=== PATIENT | female | born 1950 | race Two or more races ===

== ENCOUNTER 2021-02-07 07:36 | Outpatient (CLI) | payer MEDICARE, MEDICAID ==
[2021-02-07 08:00] LABS: BASOPHILS % (AUTO) 1 % (0-1); EOSINOPHILS % (AUTO) 3 % (1-7); LYMPHOCYTES % (AUTO) 26 % (22-44); MEAN CORPUSCULAR HEMOGLOBIN 29.8 pg (27.0-34.8); MEAN CORPUSCULAR HGB CONC 32.8 g/dL (32.4-35.8); MEAN PLATELET VOLUME 8.4 fL (7.4-10.4); MONOCYTES % (AUTO) 7 % (2-9); NEUTROPHILS % (AUTO) 64 % (42-75); PLATELET COUNT 267 x10^3/uL (130-400); RED BLOOD COUNT 4.98 x10^6/uL (3.82-5.3); RED CELL DISTRIBUTION WIDTH 14.2 % (9.6-15.2)
[2021-02-07 08:07] LABS: MD NO
[2021-02-07 08:09] LABS: ALANINE AMINOTRANSFERASE 13 U/L (12-78); ALBUMIN 3.4 g/dL (3.4-5.0); CHOLESTEROL, TOTAL 228 mg/dL (140-239); CREATININE 0.81 mg/dL (0.55-1.02)
[2021-02-07 08:19] LABS: ALKALINE PHOSPHATASE 102 U/L (45-117); BILIRUBIN,TOTAL 0.3 mg/dL (0.2-1.0); CHOL/HDL RATIO 7.1; HDL CHOL % 14 % (28-40); HDL CHOLESTEROL (DIRECT) 32 mg/dL (40-60); LDL CHOLESTEROL,CALCULATED 147 mg/dL (54-169); LDL/HDL RATIO 4.6 (0.5-3.0); TOTAL PROTEIN 7.3 g/dL (6.4-8.2); TRIGLYCERIDES 245 mg/dL (50-200); VLDL CHOLESTEROL 49 mg/dL (0-25)
[2021-02-07 08:21] LABS: CHLORIDE 107 mmol/L (98-107)
[2021-02-07 08:32] LABS: ANION GAP 3 mmol/L (5-15)
== END 2021-02-07 23:59 | disposition home or self-care (01) ==
LOC: LAB 07:36
PROVIDERS: ATTEND Family Medicine
DX: I10 Essential (primary) hypertension (principal); E03.9 Hypothyroidism, unspecified; E11.9 Type 2 diabetes mellitus without complications; E78.5 Hyperlipidemia, unspecified
CPT/HCPCS: 36415; 80053; 80061; 82043; 83036; 84443; 84479; 85025

== ENCOUNTER 2021-03-09 09:53 | Emergency (ER) | payer MEDICARE, MEDICAID ==
[~2021-03-09] VITALS: Ht 160 cm; Wt 74.0 kg
[2021-03-09 10:05] VITALS: BP 156/72
== END 2021-03-09 12:00 | disposition home or self-care (01) ==
LOC: ED 10:50
DX: M67.431 Ganglion, right wrist (principal); M65.4 Radial styloid tenosynovitis [de Quervain]; F17.210 Nicotine dependence, cigarettes, uncomplicated
CPT/HCPCS: 29125; 99283